=== PATIENT | male | born 1990 | race Caucasian/White ===

== ENCOUNTER 2021-10-16 17:25 | Emergency (ER) | payer OTHER ==
[2021-10-16 20:15] LABS: BASOPHIL 0.4 % (0-2); EOSINOPHIL 4.8 % (0-5); HCT 42.9 % (42.0-52.0); HGB 13.6 g/dl (13.2-18.0); LYMPHOCYTE 27.4 % (15-48); MCHC 31.7 g/dL (32.0-36.0); MCV 85.3 fL (78.0-100.0); MONOCYTE 16.8 % (0-12); MPV 10.3 fL (6.0-9.5); NEUTROPHIL 50.4 % (41-80); NRBC 0; PLT 207 K/uL (150-400); RBC 5.03 M/uL (4.70-6.00); RDW 13.7 % (11.5-14.0); WBC 8.5 K/uL (4.0-10.5)
[2021-10-16 20:18] LABS: AMPHETAMINES NEGATIVE (NEGATIVE); BARBITURATES NEGATIVE (NEGATIVE); ECSTASY (MDMA) NEGATIVE (NEGATIVE); MARIJUANA (THC) NEGATIVE (NEGATIVE); METHADONE NEGATIVE (NEGATIVE); OPIATES NEGATIVE (NEGATIVE); OXYCODONE NEGATIVE (NEGATIVE)
[2021-10-16] MEDS ORDERED: NAPROXEN500 MG PO (20:39)
[2021-10-16 20:58] LABS: BILIRUBIN - TOTAL 0.2 mg/dL (0.2-1.0); BUN/CREAT RATIO (CALC) 9.5 RATIO; CREATININE 0.95 mg/dL (0.67-1.17); GLOBULIN (CALCULATION) 3.4 g/dL; TOTAL PROTEIN 7.4 g/dL (6.4-8.2)
== END 2021-10-16 22:00 | disposition home or self-care (01) ==
LOC: FER 17:25
PROVIDERS: Internal Medicine
DX: R07.89 Other chest pain (principal); E87.6 Hypokalemia
CPT/HCPCS: 36415; 71045; 80053; 80305; 84443; 84484; 85025; 93005